=== PATIENT | female | born 1950 | race Native Hawaiian/Other Pacific Islander ===

== ENCOUNTER 2022-06-08 08:12 | Outpatient (CLI) | payer OTHER | END 2022-06-08 18:59 | disposition home or self-care (01) | LOC: MRI 08:12 | PROVIDERS: ATTEND Internal Medicine | DX: M25.571 Pain in right ankle and joints of right foot (principal) ==

== ENCOUNTER 2023-02-18 12:42 | Outpatient (CLI) | payer OTHER | END 2023-02-18 19:12 | disposition home or self-care (01) | LOC: RAD 12:42 | PROVIDERS: ATTEND Specialist | DX: M81.0 Age-related osteoporosis without current pathological fracture (principal) ==